=== PATIENT | male | born 1950 | race Caucasian/White ===

== ENCOUNTER 2020-08-31 12:03 | Outpatient (REF) | payer MEDICARE, SELFPAY | END 2020-08-31 12:04 | disposition home or self-care (01) | LOC: HO.BBR 12:03 | PROVIDERS: PCP Internal Medicine; Visit Provider Internal Medicine Hematology & Oncology | DX: D75.1 Secondary polycythemia (principal) | CPT/HCPCS: 36415; 85018; 99195 ==

== ENCOUNTER 2020-09-14 09:02 | Outpatient (REF) | payer MEDICARE, SELFPAY | END 2020-09-14 09:03 | disposition home or self-care (01) | LOC: HO.BBR 09:02 | PROVIDERS: Visit Provider Internal Medicine Hematology & Oncology | DX: D45 Polycythemia vera (principal) | CPT/HCPCS: 85014; 85018; 99195 ==

== ENCOUNTER 2020-10-01 11:56 | Outpatient (REF) | payer MEDICARE, SELFPAY | END 2020-10-01 11:57 | disposition home or self-care (01) | LOC: HO.BBR 11:56 | PROVIDERS: Visit Provider Internal Medicine Hematology & Oncology | DX: D75.1 Secondary polycythemia (principal) | CPT/HCPCS: 36415; 85014; 85018; 99195 ==

== ENCOUNTER 2020-10-15 11:37 | Outpatient (REF) | payer MEDICARE, SELFPAY | END 2020-10-15 11:38 | disposition home or self-care (01) | LOC: HO.BBR 11:37 | PROVIDERS: Visit Provider Internal Medicine Hematology & Oncology | DX: D75.1 Secondary polycythemia (principal) | CPT/HCPCS: 85018 ==

== ENCOUNTER 2020-10-29 10:49 | Outpatient (REF) | payer MEDICARE, SELFPAY | END 2020-10-29 10:50 | disposition home or self-care (01) | LOC: HO.BBR 10:49 | PROVIDERS: Visit Provider Internal Medicine Hematology & Oncology | DX: D75.1 Secondary polycythemia (principal) | CPT/HCPCS: 85014; 85018; 99195 ==

== ENCOUNTER 2020-11-12 08:52 | Outpatient (REF) | payer MEDICARE, SELFPAY | END 2020-11-12 08:53 | disposition home or self-care (01) | LOC: HO.BBR 08:52 | PROVIDERS: Visit Provider Internal Medicine Hematology & Oncology | DX: D75.1 Secondary polycythemia (principal) | CPT/HCPCS: 36415; 85014; 85018; 99195 ==

== ENCOUNTER 2020-12-03 10:51 | Outpatient (REF) | payer MEDICARE, SELFPAY | END 2020-12-03 10:52 | disposition home or self-care (01) | LOC: HO.BBR 10:51 | PROVIDERS: Visit Provider Internal Medicine Hematology & Oncology | DX: D75.1 Secondary polycythemia (principal) | CPT/HCPCS: 85014; 85018; 99195 ==

== ENCOUNTER 2020-12-18 08:00 | Outpatient (REF) | payer MEDICARE, SELFPAY | END 2020-12-18 08:01 | disposition home or self-care (01) | LOC: HO.BBR 08:00 | PROVIDERS: Visit Provider Internal Medicine Hematology & Oncology | DX: D75.1 Secondary polycythemia (principal) | CPT/HCPCS: 36415; 85018; 99195 ==

== ENCOUNTER 2021-01-01 08:29 | Outpatient (REF) | payer MEDICARE, SELFPAY | END 2021-01-01 08:30 | disposition home or self-care (01) | LOC: HO.BBR 08:29 | PROVIDERS: Visit Provider Internal Medicine Hematology & Oncology | DX: D75.1 Secondary polycythemia (principal) | CPT/HCPCS: 85014; 85018; 99195 ==

== ENCOUNTER 2021-01-19 11:49 | Outpatient (REF) | payer MEDICARE, SELFPAY | END 2021-01-19 11:50 | disposition home or self-care (01) | LOC: HO.BBR 11:49 | PROVIDERS: Visit Provider Internal Medicine Hematology & Oncology | DX: D75.1 Secondary polycythemia (principal) | CPT/HCPCS: 85014; 85018; 99195 ==

== ENCOUNTER 2021-03-23 11:57 | Outpatient (REF) | payer MEDICARE, SELFPAY | END 2021-03-23 11:58 | disposition home or self-care (01) | LOC: HO.BBR 11:57 | PROVIDERS: Visit Provider Internal Medicine Hematology & Oncology | DX: D75.1 Secondary polycythemia (principal) | CPT/HCPCS: 85014; 85018; 99195 ==

== ENCOUNTER 2021-05-24 11:47 | Outpatient (REF) | payer MEDICARE, SELFPAY | END 2021-05-24 11:48 | disposition home or self-care (01) | LOC: HO.BBR 11:47 | PROVIDERS: Visit Provider Internal Medicine Hematology & Oncology | DX: D75.1 Secondary polycythemia (principal) | CPT/HCPCS: 85018 ==

== ENCOUNTER 2021-08-04 09:54 | Outpatient (REF) | payer MEDICARE, SELFPAY | END 2021-08-04 09:55 | disposition home or self-care (01) | LOC: HO.BBR 09:54 | PROVIDERS: Visit Provider Internal Medicine Hematology & Oncology | DX: D75.1 Secondary polycythemia (principal) | CPT/HCPCS: 85014; 85018; 99195 ==

== ENCOUNTER 2021-12-08 09:56 | Outpatient (REF) | payer MEDICARE, SELFPAY | END 2021-12-08 09:57 | disposition home or self-care (01) | LOC: HO.BBR 09:56 | PROVIDERS: Visit Provider Internal Medicine Hematology & Oncology | DX: D75.1 Secondary polycythemia (principal) | CPT/HCPCS: 85014; 85018; 99195 ==

== ENCOUNTER 2022-05-18 09:57 | Outpatient (REF) | payer MEDICARE, SELFPAY | END 2022-05-18 09:58 | disposition home or self-care (01) | LOC: HO.BBR 09:57 | PROVIDERS: Visit Provider Internal Medicine Hematology & Oncology | DX: D75.1 Secondary polycythemia (principal) | CPT/HCPCS: 85018; 99195 ==

== ENCOUNTER → 2022-06-07 15:17 | Outpatient (BNVA) | payer MEDICARE, SELFPAY | PROVIDERS: PCP Nurse Practitioner Primary Care; Visit Provider Surgery | DX: K42.9 Umbilical hernia without obstruction or gangrene (principal); I26.99 Other pulmonary embolism without acute cor pulmonale; E11.9 Type 2 diabetes mellitus without complications; Z86.718 Personal history of other venous thrombosis and embolism; Z79.01 Long term (current) use of anticoagulants | CPT/HCPCS: 99202 ==

== ENCOUNTER 2022-11-30 09:33 | Outpatient (REF) | payer MEDICARE, SELFPAY | END 2022-11-30 09:34 | disposition home or self-care (01) | LOC: HO.BBR 09:33 | PROVIDERS: PCP Nurse Practitioner Primary Care; Visit Provider Internal Medicine Hematology & Oncology | DX: D75.1 Secondary polycythemia (principal) | CPT/HCPCS: 85014; 85018; 99195 ==

== ENCOUNTER 2024-10-24 10:33 | Outpatient (AMB) | payer MEDICARE, SELFPAY ==
--- NOTE | 2024-10-24 11:04 | MHC.OFFWIV ---
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 Patient Tobacco Use Status: Never used Tobacco Allergies latex Allergy (Mild, Verified 10/24/24 11:05) Rash morphine Allergy (Mild, Verified 10/24/24 11:05) Stomach Upset Penicillins Allergy (Mild, Verified 10/24/24 11:05) Rash Do you need a note to return to daycare/school/sports/work: No HPI HPI Comments History of Present Illness Details 74 y/o Male patient who presents to the walk in clinic with c/o Diarrhea and abdominal cramping for 3 days now. Denies recent changes to Diet or medications. Denies fevers, chills, nausea or vomiting. He has been using Imodium with minimal relief. [facility] Medical History (Updated 10/24/24 @ 11:55 by Tania Mcbride NP) Diarrhea Surgical History Hx of tonsillectomy Hx of knee surgery Social History Alcohol intake: never Patient Tobacco Use Status: Never used Tobacco Review of Systems Const All systems reviewed & are unremarkable except as noted in HPI and below Physical Exam Vital Signs: Last Vital Signs Temp 99.1 F 10/24/24 11:05 Pulse 62 10/24/24 11:05 BP 114/80 10/24/24 11:05 Pulse Ox 98 10/24/24 11:05 Oxygen Delivery Method Room Air 10/24/24 11:05 Const General: no acute distress Nutritional Appearance: overweight Orientation/consciousness: patient oriented x3 GI Inspection: Yes Abdominal panniculus present Palpation (GI): Soft to palpation, not firm, Tenderness to palpation present (GI) periumbilically and suprapubicly, no guarding, not rigid and No hepatosplenomegaly present Auscultation: normal bowel sounds Neuro General: patient oriented x3 Psych Speech and movement: Normal speech and movement present Assessment & Plan Assessment & Plan (1) Diarrhea: Code(s): R19.7 - Diarrhea, unspecified Qualifiers: Diarrhea type: unspecified type Qualified Code(s): R19.7 - Diarrhea, unspecified Plan: Stay Hydrated with Gatorade, water etc BRAT diet Ordered Stool culture for GI Panel, Cdiff and H.Pylori. Ordered Reglan and Dicyclomine. Orders: Orders H pylori Ag Stool Today R19.7 - Diarrhea, unspecified GI Panel Today R19.7 - Diarrhea, unspecified CDiff Gene PCR Today R19.7 - Diarrhea, unspecified Medications: New metoclopramide HCl (Reglan) 10 mg PO Q4-6H PRN 20 tabs 0RF nausea and vomiting R19.7 - Diarrhea, unspecified dicyclomine 10 mg PO BID 14 caps 0RF 7 days R19.7 - Diarrhea, unspecified Coding Level of Care Code Est Pt Level 4 (90004) Diagnoses Diarrhea, unspecified type R19.7 Diarrhea type: unspecified type Time Spent (min) 20
[2024-10-24 11:05] VITALS: BP 114/80; PULSE 62; TEMP 37.3; O2SAT 98
--- OUTSIDE RECORDS SUMMARY | 2024-10-24 11:43 | XMS_ITS | Clinical Summary ---
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 Name Role Phone System, Provider Not In Primary Care Provider Un available Allergies Active Allergy Reactions Criticality Noted Date Comments Penicillins Rash/Dermatitis Low 01/10/2019 Medications No known medications Social History Tobacco Use Types Packs/Day Years Used Date Smoking Tobacco: Never Assessed Sex and Gender Information Value Date Recorded Sex Assigned at Not on file Legal Sex Male 6:29 PM EST Gender Identity Not on file Sexual Orientation Not on file Last Filed Vital Signs Vital Sign Reading Time Taken Comments Blood Pressure 143/82 01/10/2019 5:23 PM EDT Pulse 71 01/10/2019 5:23 PM EDT Temperature 36.6 ??C (97.8 ??F) 01/10/2019 2:40 PM ED T Respiratory Rate 18 01/10/2019 5:23 PM EDT Oxygen Saturation 96% 01/10/2019 5:23 PM EDT Inhaled Oxygen Concentration - - Weight 88 kg (194 lb) 01/10/2019 2:40 PM EDT Height 188 cm (6' 2 ) 01/10/2019 2:40 PM EDT Body Mass Index 24.91 01/10/2019 2:40 PM EDT Plan of Treatment Health Maintenance Due Date Last Done Comments Hepatitis C Virus Screening 1950 DTaP/Tdap/Td Vaccines (1 - Tdap) 1969 Colonoscopy 10/21/1995 Pneumococcal Vaccines 50+ (1 of 1 - PCV) 2000 Zoster (Shingles) Vaccine (1 of 2) 2000 COVID-19 Vaccine ( - 2023-2 5 season) 2024 Influenza Vaccine 01/10/2025 RSV Vaccine 60 years and old er and Patients (1 - 1-dose 75+ series) 2025 Hepatitis B Vaccines Aged Out No long er eligible based on patient's age to complete this topic Insurance [facility] Care Teams Shotgun Shell Loading Machine Operator Relationship Specialty Start Date End Date System, Provider Not In PCP - General 01/10/19
--- OUTSIDE RECORDS SUMMARY | 2024-10-24 11:43 | XMS_ITS | Data Portability ---
Author Organization [place] - [facility], [facility] Address [address] [address] Care Team Providers Care Investigation Manager Name Role Phone OLIVER YUSUF Primary Care Provider Assessment No assessment recorded. Plan of Treatment Reminders Order Date Submit Date Provider Last Modified By Organization Details Last Modified Time Details Appointments Hearing Test 2024 11:00A M Hearing Test Not available Not available Not available Establish ed 30 2024 11:30A M LESLIE JEROME MD Not available Not available Not available Lab None recorded. Referral None recorded. Procedures None recorded. Surgeries None recorded. Imaging None recorded. Medication Orders None recorded. Patient TargetsNo targets recorded. Patient Instructions Encounter Date Encounter Id Patient Instructions Last Modified By Organization Details Last Modified Time 08/07/2024 [id number] Patient seen for an opinion regarding possible hearing loss. He has not noticed any difficulties. Audiometric testing shows mild high-frequency hearing loss left slightly worse than right. He has an asymptomatic septal deviation and history of prostate cancer undergoing active surveillance. At this point I have suggested observation and follow-up audiometric testing in 6 months if his hearing is stable we can go to every 12 months. Should he notice any differences between the 2 ears or there is worsening we will consider MRI scan to look for acoustic neuroma. [email or web address] Not available 08/07/2024 11:38:03 Reason for Referral None Reported. Results Created Date Observation Date Name Description Value Unit Range Abnormal Flag Note LastModifiedBy Organization Detail LastModifiedTime 08/07/19 25 audio gram No observ ation record ed. BARCODE Not Available 2024 13:59:13 Result Notes None recorded. Problems Name Problem SNOMED Code Status Onset Date Resolution Date Notes Provider Name and Address Organization Details Recorded Time Sensorineural hearing loss of bilateral ears 208571480 Active 2024 JOSE DANIEL KENNEDY [address] [place] [address],[place] [address], [place], [address], [facility] 5 10:34:21 Deviated nasal septum 792790611 Active 2024 LESLIE JEROME MD [address] [address], [place], [address], [facility] - [facility] 11:36:31 Problem Notes None recorded. Procedures Surgical History Date Name Laterality Status Provider Name and Address Organization Details Recorded Time Comp Audio with Tymps - 50082 & 61241 completed JOSE DANIEL KENNEDY [address] [facility],[address] [place] [address], [place], [address], [facility] - [facility] 08/07/2024 10:34:17 operative procedure on knee completed Tonia Sexton [facility] 08/07/2024 11:21:42 Imaging Results Imaging Date Name Status LastModified by Organiz ation Details LastModified Time 08/07/2024 audiogram completed BARCODE Information no t available 08/07/2024 13:59:13 Procedure Notes None recorded. Medical Equipment None Reported. Allergies Allergen ID Allergen Name Allergen Category Reaction Reaction Severity Criticality Documentation Date Start Date Code Code System Note Provider Name and Address Organization Details Recorded Time 135375 Product containin g penicilli n (product) medicatio n Not available Not available Not available 08/07/2024 46260 8001 SNOMED Tonia bosch MA [facility] 11:21:20 259808 latex environme nt,medica tion Not available Not available Not available 08/07/2024 89988 91 RxNorm Tonia bosch MA [facility] 11:21:25 Medications Name Sig Start Date Stop Date Status Note LastModified by Organization Details LastModified Time atorvastatin 40 mg tablet active Not Available Not Available Not Available losartan 25 mg tablet active Not Available Not Available Not Available metformin ER 500 mg tablet,extende d release 24 hr active Not Available Not Available Not Available Xarelto 20 mg tablet active Not Available Not Available Not Available Vitals Date Recorded Body height Body weight Provider Name and Address Organization Details Last Updated DateTime 08/07/2024 185.42 cm 96269.47 g Tonia Sexton [place] [facility] 08/07/2024 11:21:09 Social History None recorded. Functional Status None recorded. Mental Status None recorded. Family History Nothing Reported. Medical History Condition Response Arthritis Y Cancer Y High Cholesterol Y Migraines Y Diabetes Y Hypertension Y Past Encounters Encounter ID Performer Location Encounter Start Date Encounter Closed Date Diagnosis/Indication Diagnosis SNOMED-CT Code Diagnosis ICD10 Code Diagnosis Note [id number] LESLIE GENAO MD [facility] [address] [place] [address] [address] 08/07/2024 10:01:37 08/07/2024 11:43:50 Sensorineural hearing loss of bilateral ears 022247904 H90.3 Deviated nasal septum 12 5198125 J34.2 History of malignant neoplasm of prostate 131226958 Z85.46 [id number] JOSE DANIEL KENNEDY [facility] [address] [place] [address] [address] 08/07/2024 10:01:37 08/07/2024 11:43:50 Sensorineural hearing loss of bilateral ears 966711819 H90.3 Audiologic al evaluation results: Right ear: {{Normal N ormal through 2 kHz Mild M oderate Mo derately-s evere [place] re Profoun d Normal through 3 kHz#}} {{hearing hearing. s loping to a mild* slop ing to a moderate s loping to moderately severe slo ping to severe slo ping to profound f lat high frequency low frequency mid frequency cookie bite cabrera curve}} {{with sen sorineural hearing loss with* cond uctive hearing loss with mixed hearing loss with}} {{excellen t* good fa ir poor no measurable }} word recognitio n. Left ear: {{Normal N ormal through 2 kHz Mild M oderate Mo derately-s evere [place]ita re Profoun d Normal through 3 kHz#}} {{hearing hearing. s loping to a mild* slop ing to a moderate s loping to moderately severe slo ping to severe slo ping to profound f lat high frequency low frequency mid frequency cookie bite cabrera curve}} {{with sen sorineural hearing loss with* cond uctive hearing loss with mixed hearing loss with}} {{excellen t* good fa ir poor no measurable }} word recognitio n. Tympanomet ry: Right Ear:{{Type A* Type As Type Ad Type C Type C, shallow & rounded Ty pe B Type B with large volume Cou ld not maintain a hermetic seal}} Left Ear:{{Type A* Type As Type Ad Type C Type C, shallow & rounded Ty pe B Type B with large volume Cou ld not maintain a hermetic seal}} Health Concerns Section Related Observation LastModified by Organization Detai ls LastModified Time None Recorded Concern Status LastModified by Organization Details LastModified Time None Recorded Advance Directives Directive None Recorded Payers Insurance Date Sequence Insurance Name Policy Number Policy Mcarthur Covered Member ID Mcarthur Member ID Guarantor Name 08/02/2024 2 [facility] Tarik Quiñonez [id number] Tarik Quiñonez 08/07/2024 1 [place] Tarik Quiñonez [id number] Tarik Quiñonez 09/05/2024 2 [place] [id number] Tarik Quiñonez [id number] Tarik Quiñonez Notes Date Note Type Note Provider Name and Address Organization Details Recorded Time 08/07/2024 text/html Patient seen for an opinion regarding possible hearing loss. He denies any tinnitus or vertigo. He notes that his has been complaining that he cannot hear her adequately. She typically walks in front of him and is not usually facing him when she speaks. Overall he does not feel he has any difficulty. LESLIE HARTLEY MD [address] [place] [address], [phone], [facility] 08/07/2024 11:38:30
== END 2024-10-24 12:06 | disposition home or self-care (01) ==
PROVIDERS: PCP Nurse Practitioner Primary Care; Visit Provider Nurse Practitioner Family
DX: R19.7 Diarrhea, unspecified (principal)

== ENCOUNTER → 2024-10-24 10:33 | Outpatient (BNVA) | payer MEDICARE, SELFPAY | PROVIDERS: PCP Nurse Practitioner Primary Care; Visit Provider Nurse Practitioner Family | DX: R19.7 Diarrhea, unspecified (principal) | CPT/HCPCS: 99212 ==

== ENCOUNTER 2024-10-25 13:35 | Outpatient (REF) | payer MEDICARE, SELFPAY ==
--- OUTSIDE RECORDS SUMMARY | 2024-10-25 14:11 | XMS_ITS | Clinical Summary ---
Author Organization [facility] Address [address] [place] [address] Care Team Providers Care Director Workers Compensation Name Role Phone System, Provider Not In [...] topic [facility] Care Teams Director Workers Compensation Relationship Specialty Start Date End Date System, Provider Not In PCP - General 01/10/19
--- OUTSIDE RECORDS SUMMARY | 2024-10-25 14:12 | XMS_ITS | Data Portability ---
Author Organization [place] - [facility], [facility] Address [address] [address] Care Team Providers Care Car Worker Name Role Phone OLIVER YUSUF Primary Care [...] By Organization Details Last Modified Time 08/07/2024 [id number] Patient seen for an opinion regarding possible [...] Time Sensorineural hearing loss of bilateral ears 683541289 Active 2024 JOSE DANIEL KENNEDY [address] [place] [address],[place] [address], [place], [phone], [facility] - [facility] [place] 5 10:34:21 Deviated nasal septum 472443017 Active 2024 LESLIE JEROME MD [address] [address], [place], [address], [facility] [place] 11:36:31 Problem Notes None recorded. Procedures Surgical History Date Name Laterality Status Provider Name and Address Organization Details Recorded Time Comp Audio with Tymps - 68388 & 08915 completed JOSE DANIEL KENNEDY [address] [facility],[place] [address], [place], [address], [facility] - [facility] 08/07/2024 10:34:17 operative procedure on knee completed Tonia Sxeton [facility] 08/07/2024 11:21:42 Imaging Results Imaging Date Name Status LastModified by Organiz ation Details LastModified Time 08/07/2024 audiogram completed BAR[facility] Information no t available 08/07/2024 13:59:13 Procedure Notes None recorded. Medical Equipment None Reported. Allergies Allergen ID Allergen Name Allergen Category Reaction Reaction Severity Criticality Documentation Date Start Date Code Code System Note Provider Name and Address Organization Details Recorded Time 423653 Product containin g penicilli n (product) medicatio n Not available Not available Not available 08/07/2024 23531 8001 SNOMED Tonia bosch [place] [facility] 11:21:20 071722 latex environme nt,medica tion Not available Not available Not available 08/07/2024 07015 91 RxNorm Tonia bosch [place] [facility] 11:21:25 Medications Name Sig Start Date [...] Details Last Updated DateTime 08/07/2024 185.42 cm 04159.47 g Tonia Sexton [place] [facility] [place] 08/07/2024 11:21:09 Social History None recorded. Functional Status None recorded. Mental Status None recorded. Family History Nothing Reported. Medical History Condition Response Diabetes Y Cancer Y Arthritis Y Migraines Y Hypertension Y High Cholesterol Y Past Encounters Encounter ID Performer Location Encounter Start Date Encounter Closed Date Diagnosis/Indication Diagnosis SNOMED-CT Code Diagnosis ICD10 Code Diagnosis Note [id number] LESLIE GENAO MD [facility] [address] [address] 08/07/2024 10:01:37 08/07/2024 11:43:50 Sensorineural hearing loss of bilateral ears 759990161 H90.3 Deviated nasal septum 12 3651484 J34.2 History of malignant neoplasm of prostate 190224745 Z85.46 [id number] JOSE DANIEL KENNEDY [facility] [address] [address] 08/07/2024 10:01:37 08/07/2024 11:43:50 Sensorineural hearing loss of bilateral ears 187539249 H90.3 Audiologic al evaluation results: Right ear: [...] Mcarthur Member ID Guarantor Name 08/02/2024 2 [facility] [employer] Tarik Quiñonez [id number] Tarik Quiñonez 08/07/2024 1 [place] Tarik Quiñonez [id number] 9 Tarik Quiñonez 09/05/2024 2 [place] [id number] Tarik Quiñonez [id number] Tarik Quiñonez Notes Date Note Type [...] has any difficulty. LESLIE HARTLEY MD [address] [place] [address], [address], [facility] 08/07/2024 11:38:30
[2024-10-25 18:40] LABS: CDiff Gene PCR NEGATIVE (Negative)
[2024-10-26 13:01] LABS: Adenovirus F 40/41 Not Detected (Not Detect.); Astrovirus Not Detected (Not Detect.); Campylobacter Not Detected (Not Detect.); Cryptosporidium Not Detected (Not Detect.); Cyclospora cayetanensis Not Detected (Not Detect.); E. coli EAEC Not Detected (Not Detect.); E. coli EPEC Not Detected (Not Detect.); E. coli ETEC Not Detected (Not Detect.); E. coli STEC Not Detected (Not Detect.); Entamoeba histolytica Not Detected (Not Detect.); Giardia lamblia Not Detected (Not Detect.); Norovirus GI/GII Not Detected (Not Detect.); Plesiomonas shigelloides Not Detected (Not Detect.); Rotavirus A Not Detected (Not Detect.); Salmonella Not Detected (Not Detect.); Sapovirus Not Detected (Not Detect.); Shigella sp./EIEC Not Detected (Not Detect.); Vibrio Not Detected (Not Detect.); Vibrio Cholerae Not Detected (Not Detect.); Yersinia enterocolitica Not Detected (Not Detect.)
== END 2024-10-25 13:36 | disposition home or self-care (01) ==
LOC: HO.HMGCLNP 13:35
PROVIDERS: PCP Nurse Practitioner Primary Care; Visit Provider Nurse Practitioner Family
DX: R19.7 Diarrhea, unspecified (principal)
CPT/HCPCS: 87338; 87493; 87507